=== PATIENT | female | born 1970 | race Caucasian/White ===

== ENCOUNTER → 2016-11-29 | Outpatient (CLI) | payer BC ==
[~2016-11-29] MED LIST: ASACOL PO; CHOL100027 PO; HUMIRA 40 MG PO; HYDR25SU20 PR; MULTTAB58 PO
--- NOTE | 2016-11-30 13:54 | MAMMOGRAPHY REPORT ---
BILATERAL DIGITAL SCREENING MAMMOGRAM TOMOSYNTHESIS WITH CAD: 11/29/2016 CLINICAL HISTORY: Routine screening. Patient has no complaints. TECHNIQUE: Breast tomosynthesis in addition to standard 2D mammography was performed. Current study was also evaluated with a Computer Aided Detection (CAD) system. COMPARISON: Comparison is made to exams dated: 11/26/2015 mammogram, 11/22/2014 mammogram, 08/03/2013 tito mogram, 08/02/2012 mammogram, and 07/22/2011 mammogram - [facility]. BREAST COMPOSITION: There are scattered areas of fibroglandular density in both breasts. FINDINGS: The parenchymal pattern is unchanged. There are scattered stable benign-appearing calcifi cations in the breasts. No developing mass, architectural distortion or cluster of suspicious microc alcifications is seen in either breast. IMPRESSION: ACR BI-RADS CATEGORY 2: BENIGN There is no mammographic evidence of malignancy. A 1 year screening mammogram is recommended. The pa tient will receive written notification of the results. Approximately 10% of breast cancers are not detected with mammography. A negative mammographic report should not delay biopsy if a clinically suggestive mass is present. Laura Cleary M.D. ay/:11/29/2016 16:03:45 Licensed Acupuncturist: Chastity ANGEL(R)(M), [facility] letter sent: Normal 1/2 BI-RADS Code: ACR BI-RADS Category 2: Benign
== END | disposition home or self-care (01) ==
LOC: C.MAMM 10:21
PROVIDERS: ATTEND Internal Medicine Pulmonary Disease
DX: Z12.31 Encounter for screening mammogram for malignant neoplasm of breast (principal)

== ENCOUNTER → 2017-02-18 | Outpatient (CLI) | payer BC | END | disposition home or self-care (01) | LOC: C.PAPS 14:24 | PROVIDERS: ATTEND Physician Assistant | DX: Z01.419 Encounter for gynecological examination (general) (routine) without abnormal findings (principal) ==

== ENCOUNTER 2017-02-28 17:48 | Emergency (ER) | payer BC ==
[~2017-02-28] VITALS: Ht 167.6 cm; Wt 68.0 kg
[2017-02-28 17:55] VITALS: BP 166/80; PULSE 85; TEMP 36.9; O2SAT 100; Ht 167.6 cm; Wt 68.0 kg
== END 2017-02-28 18:20 | disposition left against medical advice (07) ==
LOC: C.EDB 17:49
DX: K92.9 Disease of digestive system, unspecified (principal)

== ENCOUNTER → 2017-03-07 | Outpatient (CLI) | payer BC | END | disposition home or self-care (01) | LOC: C.RDSM 16:44 | PROVIDERS: ATTEND Family Medicine Sports Medicine | DX: M25.561 Pain in right knee (principal) ==

== ENCOUNTER → 2017-12-09 | Outpatient (CLI) | payer OTHER ==
[~2017-12-09] MED LIST changes: +AZAT50TA25 PO
--- NOTE | 2017-12-12 07:44 | MAMMOGRAPHY REPORT ---
UNILATERAL LEFT DIGITAL DIAGNOSTIC MAMMOGRAM: 12/09/2017 CLINICAL HISTORY: Callback from screening mammogram for left breast calcifications. TECHNIQUE: The study was acquired using full field digital technology and interpreted from soft copy. Spot magnification left CC and MLO views were obtained. COMPARISON: Comparison is made to exams dated: 11/30/2017 mammogram, 11/29/2016 mammogram, 11/26/2015 ma mmogram, 11/22/2014 mammogram, 08/03/2013 mammogram, and 08/02/2012 mammogram - [facility] ter. BREAST COMPOSITION: The tissue of left breast is heterogeneously dense, which may obscure small maryam s. FINDINGS: Spot magnification views of the left breast demonstrate an 8 mm group of faint punctate and amorphous calcifications within the left inferior breast, best seen on the ML view but thought to project in t he lateral breast on the cc view. The calcifications are not clearly evident on prior exams, therefo re, the calcifications are indeterminate and stereotactic biopsy is recommended for further evaluatio n. A few other smaller similar-appearing clusters of calcifications are seen within the left inferio r breast on the ML view, for which follow-up is recommended pending benign pathology. IMPRESSION: ACR BI-RADS CATEGORY 4: SUSPICIOUS Small 8 mm group of faint punctate and amorphous calcifications in the left inferior breast is indete rminate and stereotactic biopsy is recommended for further evaluation. Pending benign pathology resu lts, recommend follow-up diagnostic mammograms of the left breast in 6 months to confirm stability of other smaller similar-appearing clusters of calcifications within the left breast. A phone call was made to the physician's office to confirm faxed results were received. The patient has been verbally notified of the results. She tentatively scheduled the biopsy before l eaving the department. Some breast cancers are not detected with mammography. A negative mammographic report should not ernie y biopsy if a clinically suggestive mass is present. Dana Richardson M.D. /:12/09/2017 11:15:30 [employer] Operator: RT Carmen(R)(M), [facility] letter sent: Abnormal 4/5 BI-RADS Code: ACR BI-RADS Category 4: Suspicious
== END | disposition home or self-care (01) ==
LOC: C.MAMM 09:45
PROVIDERS: ATTEND Internal Medicine Pulmonary Disease
DX: R92.1 Mammographic calcification found on diagnostic imaging of breast (principal)

== ENCOUNTER 2017-12-19 15:31 | Emergency (ER) | payer OTHER ==
[~2017-12-19] VITALS: Ht 167.6 cm; Wt 67.1 kg
[~2017-12-19 15:31] MED LIST changes: -AZAT50TA25 PO
[2017-12-19 15:38] VITALS: TEMP 36.8; Ht 167.6 cm; Wt 67.1 kg
[2017-12-19 16:14] LABS: BASO % 0.9 %; BASO ABS # 0.04 K/uL (0-0.2); EOS % 2.1 %; EOS ABS # 0.09 K/uL (0-0.5); HEMATOCRIT 38.5 % (37-47); HEMOGLOBIN 13.4 g/dL (12.0-16.0); IG# 0.01 K/uL (0.00-0.02); LYMPH % 36.8 %; LYMPH ABS # 1.58 K/uL (1.2-3.4); MEAN CELL VOLUME 96.3 fL (80-100); MEAN CORPUSCULAR HEMOGLOBIN 33.5 pg (25-34); MEAN CORPUSCULAR HGB CONC 34.8 g/dl (32-36); MEAN PLATELET VOLUME 9.4 fL (7.4-10.4); MONO % 6.1 %; MONO ABS # 0.26 K/uL (0.11-0.59); NEUT % 53.9 %; NEUT ABS # 2.31 K/uL (1.4-6.5); PLATELET COUNT 246 K/uL (130-400); RED CELL DISTRIBUTION WIDTH CV 13.8 % (11.5-14.5); RED CELL DISTRIBUTION WIDTH SD 48.8 fL (36.4-46.3); WHITE BLOOD COUNT 4.29 K/uL (4.8-10.8)
[2017-12-19] MEDS ORDERED: KETOROLAC TROMETHAMINE 30 MG/ML VIAL IV STA (16:14)
[2017-12-19] MEDS ORDERED: SODIUM CHLORIDE 0.9% 1000ML 1,000 ML IV STA (16:14)
[2017-12-19] MEDS ORDERED: OPTIRAY 320 IV PRN (16:30)
[2017-12-19 16:40] LABS: ALBUMIN 4.2 gm/dl (3.4-5.0); CALCIUM 9.4 mg/dl (8.5-10.1); CREATININE 0.77 mg/dl (0.60-1.20); POTASSIUM 3.6 mmol/L (3.5-5.1); TOTAL PROTEIN 8.6 gm/dl (6.4-8.2)
--- NOTE | 2017-12-19 17:26 | DIAGNOSTIC IMAGING REPORT ---
CT SCAN OF THE ABDOMEN AND PELVIS WITH IV CONTRAST CLINICAL HISTORY: Left lower quadrant abdominal pain. COMPARISON STUDY: Abdominal CT dated 07/05/2014 and 10/15/2012. TECHNIQUE: Following the IV administration of 93 cc of Optiray 320, CT scan of the abdomen and pelvis is performed from the lung bases to the proximal femora. Images are reviewed in the axial, sagittal, and coronal planes. IV contrast was administered without complication. A dose lowering technique was utilized adhering to the principles of ALARA. CT DOSE: 397.27 mGycm FINDINGS: Lung bases: The heart is normal in size and without pericardial effusion. The lung bases are clear. Liver: The contrast-enhanced liver is normal in size, contour, and attenuation. There is no intrahepatic biliary ductal dilatation. The hepatic veins and portal veins are patent. Gallbladder: There are calcified gallstones, without CT evidence of acute cholecystitis. Spleen: Normal in size and attenuation. Pancreas: Unremarkable. Adrenal glands: Unremarkable. Kidneys: The contrast enhanced kidneys are normal in size and without hydronephrosis. The kidneys enhance symmetrically. Abdominal vasculature: The abdominal aorta is normal in course and caliber. Bowel: There are postoperative changes from colonic resection with colocolonic anastomosis. No bowel obstruction is seen. Moderate fecal retention is noted in the right colon. There is no evidence of acute appendicitis. The appendiceal tip is slightly prominent, unchanged dating back to 2012. There is no associated inflammation. Peritoneum: There is no intraperitoneal free air or abdominal ascites. Small foci of subcutaneous gas in the ventral abdominal wall are likely related to subcutaneous injections. Lymphadenopathy: None. Pelvic viscera: The bladder, uterus, and adnexa are normal as visualized. There are bilateral ovarian follicles. A dominant follicle in the left ovary measures up to 2.3 cm. Skeletal structures: No lytic or blastic lesions are seen. IMPRESSION: 1. There are no acute infectious or inflammatory findings in the abdomen or pelvis. 2. There are postoperative changes from partial colon resection. No bowel obstruction is seen. 3. Moderate fecal retention is noted in the right colon. 4. Cholelithiasis. 5. Additional findings as above. Electronically signed by: Martínez Walsh M.D. 12/19/2017 5:25 PM Dictated Date/Time: 12/19/2017 5:16 PM
--- NOTE | 2017-12-19 17:29 | EMERGENCY ROOM VISIT NOTE ---
History Report prepared by Sweetie: Luna Acosta Under the Supervision of: Dr. Brijesh Vazquez D.O. First contact with patient: 15:45 Chief Complaint: ABDOMINAL PAIN Stated Complaint: LOWER L QUADRANT ABDOMINAL PAIN, L LOWER BACK PAIN History of Present Illness The patient is a 47 year old female who presents to the Emergency Room with complaints of worsening abdominal pain in her lower left quadrant that began a week ago. The patient notes that the pain has been increasing in severity and occasionally radiates into her left lower back. The patient states that the pain began in her back, but since has moved into her abdomen. She noted that Tylenol alleviated the symptoms. The patient denies fever, diarrhea, vaginal bleeding or discharge. The patient notes that she has Crohn's disease, but stated that his pain is different than the flare up of the disease. She notes that she is on Humria. She also states that she has had partial bowel obstructions that have resolved on their own, as well as a partial resection of her large intestine 5 years ago. The patient denies a history of kidney stones. Source of History: patient Onset: 1 Week ago Position: abdomen (LLQ) Quality: other (radiating) Timing: worsening Modifying Factors (Relieving): tylenol Associated Symptoms: + back pain, No fevers, No diarrhea Note: The patient denies vaginal bleeding and discharge. Review of Systems See HPI for pertinent positives & negatives. A total of 10 systems reviewed and were otherwise negative. Past Medical & Surgical Medical Problems: (1) Asthma (2) Crohn's disease (3) Small bowel obstruction Surgical Problems: (1) S/P partial resection of colon Family History Patient reports no known family medical history. Social History Smoking Status: Never Smoker Drug Use: none Marital Status: Housing Status: lives with family Occupation Status: employed Current/Historical Medications Scheduled Azathioprine (Azathioprine), 150 MG PO QAM Cholecalciferol (Vitamin D 1000 Unit), 1,000 INTER.UNIT PO DAILY Multiple Vitamin (Multivitamin), 1 TAB PO DAILY [Humira 40MG], 80 MG PO Q 2 WEEKS Allergies Coded Allergies: Animal Dander (Verified Allergy, Unknown, SHORTNESS OF BREATH, 12/19/17) WHEEZES & SNEEZES Molds and Smuts (Verified Allergy, Unknown, SHORTNESS OF BREATH, 12/19/17) WHEEZES & SNEEZES Physical Exam Vital Signs Date Time Temp Pulse Resp B/P (MAP) Pulse Ox O2 Delivery O2 Flow Rate FiO2 12/19/17 17:48 64 18 118/71 100 12/19/17 16:31 58 20 125/65 100 Room Air 12/19/17 15:38 36.8 65 18 137/77 100 Room Air Physical Exam GENERAL: Sitting up in bed, alert, well appearing, well nourished, no distress, non-toxic EYE EXAM: normal conjunctiva. OROPHARYNX: no exudate, no erythema, lips, buccal mucosa, and tongue normal and mucous membranes are moist NECK: supple, no nuchal rigidity, no adenopathy, non-tender LUNGS: Clear to auscultation. Normal chest wall mechanics HEART: no murmurs, S1 normal and S2 normal ABDOMEN: abdomen soft, minimal tenderness to palpation in left flank, normo- active bowel sounds, no masses, no rebound or guarding. BACK: Back is symmetrical on inspection and there is no deformity, no midline tenderness, no CVA tenderness. SKIN: no rashes and no bruising UPPER EXTREMITIES: upper extremities are grossly normal. LOWER EXTREMITIES: No pitting edema. NEURO EXAM: Normal sensorium, cranial nerves II-XII grossly intact, normal speech, no gross weakness of arms, no gross weakness of legs. Medical Decision & Procedures ER Provider Diagnostic Interpretation: Radiology results as stated below per my review and the radiologist's interpretation: CT SCAN OF THE ABDOMEN AND PELVIS WITH IV CONTRAST CLINICAL HISTORY: Left lower quadrant abdominal pain. COMPARISON STUDY: Abdominal CT dated 07/05/2014 and 10/15/2012. TECHNIQUE: Following the IV administration of 93 cc of Optiray 320, CT scan of the abdomen and pelvis is performed from the lung bases to the proximal femora. Images are reviewed in the axial, sagittal, and coronal planes. IV contrast was administered without complication. A dose lowering technique was utilized adhering to the principles of ALARA. CT DOSE: 397.27 mGycm FINDINGS: Lung bases: The heart is normal in size and without pericardial effusion. The lung bases are clear. Liver: The contrast-enhanced liver is normal in size, contour, and attenuation. There is no intrahepatic biliary ductal dilatation. The hepatic veins and portal veins are patent. Gallbladder: There are calcified gallstones, without CT evidence of acute cholecystitis. Spleen: Normal in size and attenuation. Pancreas: Unremarkable. Adrenal glands: Unremarkable. Kidneys: The contrast enhanced kidneys are normal in size and without hydronephrosis. The kidneys enhance symmetrically. Abdominal vasculature: The abdominal aorta is normal in course and caliber. Bowel: There are postoperative changes from colonic resection with colocolonic anastomosis. No bowel obstruction is seen. Moderate fecal retention is noted in the right colon. There is no evidence of acute appendicitis. The appendiceal tip is slightly prominent, unchanged dating back to 2012. There is no associated inflammation. Peritoneum: There is no intraperitoneal free air or abdominal ascites. Small foci of subcutaneous gas in the ventral abdominal wall are likely related to subcutaneous injections. Lymphadenopathy: None. Pelvic viscera: The bladder, uterus, and adnexa are normal as visualized. There are bilateral ovarian follicles. A dominant follicle in the left ovary measures up to 2.3 cm. Skeletal structures: No lytic or blastic lesions are seen. IMPRESSION: 1. There are no acute infectious or inflammatory findings in the abdomen or pelvis. 2. There are postoperative changes from partial colon resection. No bowel obstruction is seen. 3. Moderate fecal retention is noted in the right colon. 4. Cholelithiasis. 5. Additional findings as above. Electronically signed by: Martínez Walsh M.D. 12/19/2017 5:25 PM Dictated Date/Time: 12/19/2017 5:16 PM Laboratory Results 12/19/17 16:00 Red Blood Count 4.00, Mean Corpuscular Volume 96.3, Mean Corpuscular Hemoglobin 33.5, Mean Corpuscular Hemoglobin Concent 34.8, Mean Platelet Volume 9.4, Neutrophils (%) (Auto) 53.9, Lymphocytes (%) (Auto) 36.8, Monocytes (%) (Auto) 6.1, Eosinophils (%) (Auto) 2.1, Basophils (%) (Auto) 0.9, Neutrophils # (Auto) 2.31, Lymphocytes # (Auto) 1.58, Monocytes # (Auto) 0.26, Eosinophils # (Auto) 0.09, Basophils # (Auto) 0.04 12/19/17 16:00 Test 12/19/17 16:00 White Blood Count 4.29 K/uL (4.8-10.8) Red Blood Count 4.00 M/uL (4.2-5.4) Hemoglobin 13.4 g/dL (12.0-16.0) Hematocrit 38.5 % (37-47) Mean Corpuscular Volume 96.3 fL (80-100) Mean Corpuscular Hemoglobin 33.5 pg (25-34) Mean Corpuscular Hemoglobin Concent 34.8 g/dl (32-36) Platelet Count 246 K/uL (130-400) Mean Platelet Volume 9.4 fL (7.4-10.4) Neutrophils (%) (Auto) 53.9 % Lymphocytes (%) (Auto) 36.8 % Monocytes (%) (Auto) 6.1 % Eosinophils (%) (Auto) 2.1 % Basophils (%) (Auto) 0.9 % Neutrophils # (Auto) 2.31 K/uL (1.4-6.5) Lymphocytes # (Auto) 1.58 K/uL (1.2-3.4) Monocytes # (Auto) 0.26 K/uL (0.11-0.59) Eosinophils # (Auto) 0.09 K/uL (0-0.5) Basophils # (Auto) 0.04 K/uL (0-0.2) RDW Standard Deviation 48.8 fL (36.4-46.3) RDW Coefficient of Variation 13.8 % (11.5-14.5) Immature Granulocyte % (Auto) 0.2 % Immature Granulocyte # (Auto) 0.01 K/uL (0.00-0.02) Urine Color YELLOW Urine Appearance CLEAR (CLEAR) Urine pH 7.5 (4.5-7.5) Urine Specific [place] 1.013 (1.000-1.030) Urine Protein NEG (NEG) Urine Glucose (UA) NEG (NEG) Urine Ketones NEG (NEG) Urine Occult Blood NEG (NEG) Urine Nitrite NEG (NEG) Urine Bilirubin NEG (NEG) Urine Urobilinogen NEG (NEG) Urine Leukocyte Esterase TRACE (NEG) Urine WBC (Auto) 1-5 /hpf (0-5) Urine RBC (Auto) 0-4 /hpf (0-4) Urine Hyaline Casts (Auto) 0 /lpf (0-5) Urine Epithelial Cells (Auto) 5-10 /lpf (0-5) Urine Bacteria (Auto) NEG (NEG) Urine Test NEG (NEG) Anion Gap 7.0 mmol/L (3-11) Est Creatinine Clear Calc Drug Dose 85.4 ml/min Estimated GFR () 107.3 Estimated GFR (Non- 92.6 BUN/Creatinine Ratio 18.3 (10-20) Calcium Level 9.4 mg/dl (8.5-10.1) Total Bilirubin 0.5 mg/dl (0.2-1) Direct Bilirubin 0.2 mg/dl (0-0.2) Aspartate Amino Transf (AST/SGOT) 15 U/L (15-37) Alanine Aminotransferase (ALT/SGPT) 16 U/L (12-78) Alkaline Phosphatase 40 U/L (45-117) Total Protein 8.6 gm/dl (6.4-8.2) Albumin 4.2 gm/dl (3.4-5.0) Lipase 82 U/L (73-393) Laboratory results per my review. Medications Administered Medications (Trade) Dose Ordered Sig/Yakelin Route Start Time Stop Time Status Last Admin Dose Admin Sodium Chloride 1,000 ml @ 999 mls/hr Q1H1M STAT IV 12/19/17 16:14 12/19/17 17:14 DC 12/19/17 16:14 999 MLS/HR Ketorolac Tromethamine (Toradol Inj) 30 mg NOW STAT IV 12/19/17 16:14 12/19/17 16:15 DC 12/19/17 16:14 30 MG Laboratory results per my review. ED Course ED COURSE: Vital signs were reviewed and showed to be situationally hypertensive. The patients medical record was reviewed The above diagnostic studies were performed and reviewed. ED treatments and interventions as stated above. 1546: The patient was evaluated in room C12. A complete history and physical examination was performed. 1614: Ordered Toradol Inj 30 mg IV, Sodium Chloride 1,000 ml @ 999 mls/hr IV. 1700: I went to go reevaluate the patient but she was in a CT scan. 1731: Upon reevaluation, the patient is resting comfortably. I discussed my findings with the patient and she understands and agrees with the treatment plan. Based on the patients age, coexisting illnesses, exam and lab findings the decision to treat as an outpatient was made. The patient remained stable while under my care. The patient appeared well at the time of discharge. Medical Decision Differential diagnoses includes but is not limited to gastritis, peptic ulcer disease, GERD, gallbladder disease, pancreatitis, small bowel obstruction, acute coronary syndrome, pericarditis, ischemic bowel, irritable bowel disease, irritable bowel syndrome, appendicitis, diverticulitis, malignancy, hernia, urinary tract infection, torsion, [/ectopic (if female)], perforation, trauma, infectious. Patient is a 47-year-old female who presents for left lower quadrant abdominal pain which is been present for the past week. No diarrhea or blood in her stool. Does have a past medical history of Crohn's with previous resection. Has had no symptoms since then. Is on Humira. BMP along with LFTs, bilirubin and lipase is unremarkable. UA was negative. was negative. CT abdomen pelvis shows no acute pathology. Patient was updated at bedside. She was discharged follow-up with her PCP as an outpatient. Discussed with Pt concerning signs and symptoms to watch out for. Pt was instructed to follow up with their PCP and discussed with the patient their option to return to the ED at anytime for persistent or worsening symptoms. The appropriate anticipatory guidance and out-patient management, including indications for return to the emergency department, were explained at length to the patient and understood. Medication Reconcilliation Current Medication List: was personally reviewed by me Blood Pressure Screening Patient's blood pressure: Elevated blood pressure Blood pressure disposition: Elevated BP felt to be situational Impression Primary Impression: Lower abdominal pain Scribe Attestation The scribe's documentation has been prepared under my direction and personally reviewed by me in its entirety. I confirm that the note above accurately reflects all work, treatment, procedures, and medical decision making performed by me. Departure Information Dispostion Home / Self-Care Referrals No Doctor, Assigned (PCP) Forms Call Back Authorization, HOME CARE DOCUMENTATION FORM, IMPORTANT VISIT INFORMATION Patient Instructions [facility] Additional Instructions Please follow up with your primary care doctor with in the next 24 hours. Any worsening of your symptoms, please return to the ED immediately. This includes any fevers greater than 100.4, worsening pain, chest pain, shortness breath, persistent nausea, vomiting, unable to eat or drink, or any other concerning signs or symptoms from your standpoint. Please take Tylenol or Motrin as needed for pain. Please have your UA rechecked within 1-2 weeks by her PCP to make sure the hematuria completely resolves.
[2017-12-19] MEDS ORDERED: AZAT50TA25 PO (17:38)
[2017-12-19 17:48] VITALS: BP 118/71; PULSE 64; O2SAT 100
== END 2017-12-19 17:49 | disposition home or self-care (01) ==
LOC: C.EDB 15:33 → C.EDC 17:49
DX: R10.32 Left lower quadrant pain (principal); K50.90 Crohn's disease, unspecified, without complications; Z90.49 Acquired absence of other specified parts of digestive tract; J45.909 Unspecified asthma, uncomplicated; Z79.899 Other long term (current) drug therapy; Z91.048 Other nonmedicinal substance allergy status

== ENCOUNTER → 2017-12-21 | Outpatient (CLI) | payer OTHER ==
[~2017-12-21] MED LIST changes: -ASACOL PO; +AZAT50TA25 PO; -HYDR25SU20 PR
--- NOTE | 2017-12-21 14:23 | DIAGNOSTIC IMAGING REPORT ---
ULTRASOUND OF THE PELVIS CLINICAL HISTORY: Left pelvic pain. COMPARISON STUDY: Pelvic CT dated 12/19/2017. TECHNIQUE: Real-time, grayscale, and color flow sonography of the pelvis is performed both transabdominally and endovaginally. Images are reviewed in the transverse and longitudinal planes. FINDINGS: Uterus: The uterus is normal in size and echotexture, measuring 8.9 x 5.0 x 6.5 cm. A nabothian cyst is incidentally noted in the cervix. Endometrium: The endometrium is normal as visualized, and the endometrial stripe is top normal in thickness measuring up to 1.2 cm. Ovaries: The ovaries are normal in size and morphology. The right ovary measures 3.8 x 3.0 x 2.5 cm and the left ovary measures 2.8 x 2.1 x 2.3 cm. There are small bilateral ovarian follicles. A dominant follicle in the left measures up to 2.5 cm. Normal Doppler waveforms are shown within both ovaries. Pelvis: There is trace free fluid in the cul-de-sac. No concerning adnexal lesion is seen. IMPRESSION: 1. No acute sonographic abnormality is seen in the pelvis. 2. The endometrial stripe is top normal in thickness measuring up to 1.2 cm. 3. Trace free fluid in the cul-de-sac is likely within physiologic limits. Electronically signed by: Martínez Walsh M.D. 12/21/2017 2:22 PM Dictated Date/Time: 12/21/2017 2:19 PM
== END | disposition home or self-care (01) ==
LOC: C.ULTRBC 13:23
PROVIDERS: ATTEND Internal Medicine Gastroenterology
DX: R10.32 Left lower quadrant pain (principal)

== ENCOUNTER → 2017-12-29 | Outpatient (CLI) | payer OTHER ==
--- NOTE | 2017-12-29 13:37 | Discharge Instructions ---
Discharge Instructions Procedure Procedure Date: Dec 29, 2017. Reason for visit: Left Calcs. Discharge Discharge Date: Dec 29, 2017. Discharge Diagnosis: status post breast biopsy Instructions Activity Recommendations: Additional Limitations (see below) Return to School/Work: no limitations Recommended Home Diet: No Limitations Provider Instructions: ACTIVITY RECOMMENDATIONS: * No lifting, pushing, pulling or exercising the affected side for three days. RETURN TO SCHOOL/WORK: * You may return to work/school after the procedure, but do not perform any strenuous activities for 24 to 48 hours. MEDICATIONS: * Tylenol (two 325 mg) every four to six hours if needed for mild pain (if not allergic to Tylenol). DIET: * Resume previous diet. SPECIAL CARE INSTRUCTIONS: * Keep biopsy site dry for 24 hours. May shower after 24 hours, but do not soak (bathe) incision. * May remove Tegaderm (plastic patch) 24 hours after procedure * Leave the steri-strips on for one week. Allow the steri-strips to fall off by themselves. If not off after one week, you may remove them. You may place a Bandaid crosswise over the strips, if desired. * Apply ice 10 minutes on and 10 minutes off as needed. * Wear a bra at bedtime to sleep more comfortably for 2-3 days. * Your referring physician should have the results after approximately 5 to 7 business days. * Call for unusual bleeding, fever, drainage, etc or if you have any questions call during normal business hours or after hours call Dr Richardson, . FOLLOW UP VISIT: Follow-up with Referring Physician as scheduled. Allergies Coded Allergies: Animal Dander (Verified Allergy, Unknown, SHORTNESS OF BREATH, 12/19/17) WHEEZES & SNEEZES Molds and Smuts (Verified Allergy, Unknown, SHORTNESS OF BREATH, 12/19/17) WHEEZES & SNEEZES Huy Cavazos Recommendations: Call your doctor if: * Temperature above 101 degrees * Pain not relieved by pain medicine ordered * There is increased drainage or redness from any incision * You have any unanswered questions or concerns. Your Doctors Instructions noted above were prepared by provider Dana Richardson. Patient Signature Section: Patient Instructions Signature Page Linda Ward Patient (or Guardian) Signature/Date: I have read and understand the instructions given to me by my caregivers. Caregiver/RN/Doctor Signature/Date: The above-named patient and/or guardian has received patient instructions on this date. + Original Patient Signature Page (only) stays with chart. Please make copy for patient.
--- NOTE | 2017-12-29 15:14 | MAMMOGRAPHY REPORT ---
UNILATERAL LEFT DIGITAL DIAGNOSTIC MAMMOGRAM: 12/29/2017 CLINICAL HISTORY: Status post left breast stereotactic biopsy. TECHNIQUE: The study was acquired using full field digital technology and interpreted from soft copy. Postprocedural left CC and ML views were obtained. COMPARISON: Comparison is made to exams dated: 12/09/2017 mammogram, 11/30/2017 mammogram, 11/29/2016 m ammogram, 11/26/2015 mammogram, 11/22/2014 mammogram, and 08/03/2013 mammogram - [facility] ter. BREAST COMPOSITION: The tissue of left breast is heterogeneously dense, which may obscure small maryam s. FINDINGS: A new biopsy marker clip is seen in the left inferior breast at approximately 6:00 status p ost stereotactic biopsy of left breast calcifications. The biopsy clip is located slightly inferior to the dominant clusters of calcifications on the ML view, however, the clip is located in the region of a previously seen faint cluster of calcifications from the spot magnification views from the 12/09 exam. No significant postbiopsy hematoma is seen. IMPRESSION: POST PROCEDURE IMAGING FOR MARKER PLACEMENT New biopsy marker clip status post left breast stereotactic biopsy. Pathology results are pending. Some breast cancers are not detected with mammography. A negative mammographic report should not ernie y biopsy if a clinically suggestive mass is present. Dana Richardson M.D. /:12/29/2017 14:29:13 Attending Technologist: Delfina Tobin, [facility] Social Services Counselor: Chastity Baltazar, RT(R)(M), [facility] BI-RADS Code: Post Procedure Imaging For Marker Placement
--- NOTE | 2017-12-29 15:14 | MAMMOGRAPHY REPORT ---
STEREOTACTIC GUIDED BIOPSY LEFT BREAST: 12/29/2017 CLINICAL HISTORY: Indeterminate calcifications in the left inferior breast. PATIENT CONSENT: The procedure, risks, benefits, and alternatives of stereotactic biopsy with clip pl acement were discussed with the patient, and verbal and written consent was obtained. A timeout was performed immediately prior to the procedure. PROCEDURE DESCRIPTION: With stereotactic guidance, aseptic technique, and lidocaine as a local anesth etic (1% lidocaine to anesthetize the skin and 1% lidocaine with epinephrine to anesthetize the deepe r tissues), the area of concern was sampled multiple times with a 9-gauge vacuum-assisted biopsy need le (Suros Eviva). The path of approach was caudocranial with the patient in a lateral approach (usin g a lateral arm as the breast compressed very thin). The exam was technically difficult due to the s mall breast size with compression and given the faint nature and therefore difficult visualization of the calcifications. The specimen radiograph demonstrates a few possible faint calcifications to be present in the samples. One round of additional samples were obtained, however, the patient was havi ng significant discomfort after the second round of samples and therefore no more samples were obtain ed. A metallic marker clip was placed at the biopsy site. Postprocedural mammograms were obtained t o confirm clip placement. Direct pressure was applied at the biopsy site until hemostasis was achiev ed. The patient tolerated the procedure without complication. She was given wound care instructions . COMPARISON: Comparison is made to exams dated: 12/09/2017 mammogram, 11/30/2017 mammogram, 11/29/2016 m ammogram, 11/26/2015 mammogram, 11/22/2014 mammogram, and 08/03/2013 mammogram - [facility]. IMPRESSION: STEREOTACTIC GUIDED BIOPSY Stereotactic biopsy of indeterminate calcifications in the left inferior breast, with clip placement. A few possible faint calcifications are seen within the specimens. An addendum will be made after pathology results are reviewed to determine if any further management is needed. Dana Richardson M.D. /:12/29/2017 13:50:14 Attending Technologist: Delfina Tobin, [facility] Layout Technician: Chastity Baltazar, RT(R)(M), [facility]
== END | disposition home or self-care (01) ==
LOC: C.MAMM 12:38
PROVIDERS: ATTEND Internal Medicine Pulmonary Disease
DX: R92.1 Mammographic calcification found on diagnostic imaging of breast (principal)